=== PATIENT | female | born 2000 | race Caucasian/White ===

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

== ENCOUNTER 2018-06-07 15:30 | Emergency (ER) | payer SELFPAY ==
[~2018-06-07] VITALS: Ht 165.1 cm; Wt 51.5 kg
[2018-06-07 16:22] LABS: BASOPHILS # (AUTO) 0.03 x10^3/uL (0-0.3); BASOPHILS % (AUTO) 0 % (0-1); EOSINOPHILS # (AUTO) 0.35 x10^3/uL (0-0.8); EOSINOPHILS % (AUTO) 4 % (1-7); LYMPHOCYTES # (AUTO) 2.76 x10^3/uL (1-6.1); LYMPHOCYTES % (AUTO) 31 % (22-44); MD NO; MEAN CORPUSCULAR HEMOGLOBIN 29.4 pg (27.0-34.8); MEAN CORPUSCULAR HGB CONC 33.1 g/dL (32.4-35.8); MEAN CORPUSCULAR VOLUME 88.7 fL (80-100); MEAN PLATELET VOLUME 7.9 fL (7.4-10.4); MONOCYTES # (AUTO) 0.57 x10^3/uL (0-1.4); MONOCYTES % (AUTO) 7 % (2-9); NEUTROPHILS # (AUTO) 5.11 x10^3/uL (1.8-8.0); NEUTROPHILS % (AUTO) 58 % (42-75); PLATELET COUNT 234 x10^3/uL (130-400); RED BLOOD COUNT 4.29 x10^6/uL (3.82-5.3); RED CELL DISTRIBUTION WIDTH 13.3 % (9.6-15.2)
[2018-06-07] MEDS ORDERED: ACETAMINOPHEN 325 MG TABLET PO ONE (16:30)
[2018-06-07] MEDS ORDERED: DIPHENHYDRAMINE 25 MG CAPSULE PO ONE (16:30)
[2018-06-07] MEDS ORDERED: MECLIZINE CHEWABLE 25 MG TAB PO ONE (16:30)
[2018-06-07] MEDS ORDERED: ONDANSETRON ODT 4 MG PO ONE (16:30)
[2018-06-07 16:31] LABS: ALANINE AMINOTRANSFERASE 18 U/L (12-78); ALBUMIN 3.8 g/dL (3.4-5.0); ANION GAP 6 mmol/L (5-15); CALCIUM 8.3 mg/dL (8.5-10.1); CHLORIDE 109 mmol/L (98-107)
[2018-06-07] MEDS ORDERED: ACETAMINOPHEN 325 MG TABLET ONE (16:34)
[2018-06-07] MEDS ORDERED: ONDANSETRON ODT 4 MG ONE (16:34)
[2018-06-07] MEDS ORDERED: DIPHENHYDRAMINE 25 MG CAPSULE ONE (16:34)
[2018-06-07] MEDS ORDERED: MECLIZINE CHEWABLE 25 MG TAB ONE (16:34)
[2018-06-07 16:36] LABS: ALKALINE PHOSPHATASE 72 U/L (45-117); BILIRUBIN,TOTAL 0.3 mg/dL (0.2-1.0); CREATININE 0.65 mg/dL (0.55-1.02); TOTAL PROTEIN 6.7 g/dL (6.4-8.2)
[2018-06-07 17:31] LABS: CULTURE INDICATED? NO; MICROSCOPIC NOT IND
[2018-06-07 17:32] VITALS: BP 100/66
== END 2018-06-07 17:50 | disposition home or self-care (01) ==
LOC: ED 17:03
DX: R42 Dizziness and giddiness (principal); R51 Headache; H53.149 Visual discomfort, unspecified; H53.8 Other visual disturbances; R11.0 Nausea
CPT/HCPCS: 36415; 70450; 80053; 81003; 84703; 85025; 93005; 99284; Q0162; Q0163

== ENCOUNTER 2019-01-28 14:06 | Emergency (ER) | payer SELFPAY ==
[~2019-01-28] VITALS: Ht 165.1 cm; Wt 49.4 kg
[2019-01-28 14:09] VITALS: BP 99/70
== END 2019-01-28 15:29 | disposition left against medical advice (07) ==
LOC: ED 15:23
DX: R07.89 Other chest pain (principal); Z53.21 Procedure and treatment not carried out due to patient leaving prior to being seen by health care provider
CPT/HCPCS: 93005

== ENCOUNTER 2019-02-28 20:16 | Emergency (ER) | payer MEDICAID, OTHER ==
[~2019-02-28] VITALS: Ht 165.1 cm; Wt 48.0 kg
[2019-02-28 20:17] VITALS: BP 105/60
[2019-02-28] MEDS ORDERED: ACETAMINOPHEN 325 MG TABLET ONE (20:37)
[2019-02-28] MEDS ORDERED: ACETAMINOPHEN 325 MG TABLET PO ONE (21:00)
--- NOTE | 2019-02-28 21:48 | NUR ---
Patient/Caregiver given discharge instructions and they have confirmed that they understand the instructions. Patient ambulatory with steady gait.
== END 2019-02-28 21:50 | disposition home or self-care (01) ==
LOC: ED 21:12
DX: S83.8X2A Sprain of other specified parts of left knee, initial encounter (principal); W01.0XXA Fall on same level from slipping, tripping and stumbling without subsequent striking against object, initial encounter; Y93.89 Activity, other specified; Y92.098 Other place in other non-institutional residence as the place of occurrence of the external cause; Y99.8 Other external cause status
CPT/HCPCS: 29505; 99283

== ENCOUNTER 2021-01-22 17:02 | Emergency (ER) | payer MEDICAID ==
[~2021-01-22] VITALS: Ht 165.1 cm; Wt 55.2 kg
--- NOTE | 2021-01-22 18:10 | NUR ---
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
--- NOTE | 2021-01-22 18:12 | NUR ---
PATIENT WALKED BACK FROM TRIAGE WITH CHIEF C/O "I FEEL LIKE I HAVE SOMETHING STUCK IN MY THROAT." PER PATIENT SHE FEELS THIS WAY AT NIGHT AFTER LAYING DOWN, HAS BECOME PROGRESSIVELY WORSE. SOMETIMES IT IS WORSE AFTER EATING. SARA, FRIEND AT BEDSIDE, CALL LIGHT WITHIN REACH.
--- NOTE | 2021-01-22 18:47 | NUR ---
REPORT RECIEVED FROM PAU ALCAZAR
[2021-01-22 20:29] VITALS: BP 100/57
== END 2021-01-22 20:30 | disposition home or self-care (01) ==
LOC: ED 19:08
DX: K20.90 Esophagitis, unspecified without bleeding (principal); F17.200 Nicotine dependence, unspecified, uncomplicated
CPT/HCPCS: 74220; 99283